=== PATIENT | male | born 1990 | race Two or more races ===

== ENCOUNTER 2024-04-17 17:10 | Emergency (ER) | payer OTHER ==
[~2024-04-17] VITALS: Ht 157.5 cm; Wt 61.7 kg
[2024-04-17 18:45] LABS: HEMATOCRIT 38.9 % (39.0-48.0); HEMOGLOBIN 13.4 g/dL (13-16.00); MEAN CORPUSCULAR HEMOGLOBIN 29.6 pg (27.00-32.0); MEAN CORPUSCULAR HGB CONC 34.5 g/dl (32.0-36.0); PLATELET COUNT 471 K/uL (150-450); RED BLOOD COUNT 4.52 M/uL (4.00-6.00); RED CELL DISTRIBUTION WIDTH 13.4 % (11.5-14.5)
[2024-04-17 18:51] LABS: URINE APPEARANCE Clear; URINE BILIRRUBIN Negative (NEGATIVE); URINE BLOOD Large; URINE COLOR Yellow; URINE GLUCOSE Negative (NEGATIVE); URINE KETONE Negative (NEGATIVE); URINE LEUKOCYTE Negative; URINE NITRATE Negative; URINE PROTEIN Negative (NEGATIVE)
[2024-04-17 18:55] LABS: URINE BACTERIA 7.3 uL (0.0-1933); URINE RBC 645.1 uL (0.0-20.8); URINE WBC 6.9 uL (0.0-23.2)
[2024-04-17 19:03] LABS: CALCIUM 9.3 mg/dL (8.5-10.1); CREATININE SERUM 0.84 mg/dL (0.70-1.30); GFR 105.89; POTASSIUM 4.2 mEq/L (3.5-5.1)
[2024-04-17 19:37] LABS: URINE CAST 0.14 uL (0.0-1.40); URINE EPITHELIAL CELLS 1.1 uL (0.0-38.8)
== END 2024-04-18 00:26 | disposition home or self-care (01) ==
LOC: ER 17:12
PROVIDERS: General Practice
DX: R31.9 Hematuria, unspecified (principal); N20.0 Calculus of kidney; Z88.6 Allergy status to analgesic agent